=== PATIENT | female | born 1970 | race Caucasian/White ===

== ENCOUNTER 2020-09-21 08:11 | Outpatient (REF) | payer BC, SELFPAY ==
[2020-09-21 09:31] LABS: MANUAL DIFF FLAG NO
[2020-09-21 09:39] LABS: Basophils Absolute Auto 0.1 X10*3/uL (0.0-0.2); Basophils Percent Auto 0.6 % (0-2); Eosinophils Absolute Auto 0.2 X10*3/uL (0.0-0.4); Eosinophils Percent Auto 2.7 % (0-4); Hematocrit 46.2 % (37-47); Hemoglobin 15.2 g/dl (12.0-16.0); Imm Gran Abs Auto 0.06 X10*3/uL (0.00-0.03); Imm Gran Pct Auto 0.7 % (0.0-0.4); Lymphocytes Percent Auto 34.7 % (20-40); Mean Corpuscular HGB Conc 32.9 g/dl (31.0-35.0); Mean Corpuscular Hemoglobin 30.4 pg (27.0-33.0); Mean Corpuscular Volume 92.4 fL (80-98); Mean Platelet Volume 11.3 fL (9.4-12.3); Monocytes Absolute Auto 0.6 X10*3/uL (0.1-1.2); Monocytes Percent Auto 7.4 % (2-11); Neutrophils Absolute Auto 4.6 X10*3/uL (2.0-8.3); Neutrophils Percent Auto 53.9 % (45-73); Platelet Count 217 X10*3/uL (160-400); Red Cell Distribution Width 12.8 % (11.0-16.0); White Blood Count 8.6 X10*3/uL (4.8-10.8)
[2020-09-21 10:02] LABS: Alanine Aminotransferase 33 U/L (0-31); Albumin Level 4.2 g/dL (3.5-5.0); Alkaline Phosphatase 92 U/L (39-117); Anion Gap 12 (12-20); Aspartate Amino Transferase 23 U/L (5-31); Bilirubin Total 1.9 mg/dL (0.0-1.0); Blood Urea Nitrogen 14 mg/dL (9-16); Calcium 9.4 mg/dL (8.4-10.2); Carbon Dioxide 26 mmol/L (22-29); Chloride 109 mmol/L (96-108); Cholesterol 224 mg/dL; Estimated Glomerular Filt Rate > 60; Glucose Fasting 93 mg/dL (60-99); HDL Cholesterol 56 mg/dL; LDL Cholesterol Calculated 125 mg/dl; Potassium 4.4 mmol/L (3.3-5.1); Sodium 143 mmol/L (135-145); Total Protein 7.2 g/dL (6.5-8.0); Triglycerides 215 mg/dL
[2020-09-21 10:16] LABS: Thyroid Stimulating Hormone 0.11 uIU/mL (0.32-4.0); Vitamin D 25-OH Total 14.5 ng/mL (>30)
== END 2020-09-21 08:12 | disposition home or self-care (01) ==
LOC: HO.LAB 08:11
PROVIDERS: PCP Internal Medicine; Visit Provider Internal Medicine
DX: E03.9 Hypothyroidism, unspecified (principal); E55.9 Vitamin D deficiency, unspecified; C50.911 Malignant neoplasm of unspecified site of right female breast; G47.9 Sleep disorder, unspecified; M72.2 Plantar fascial fibromatosis; E66.09 Other obesity due to excess calories; Z68.39 Body mass index [BMI] 39.0-39.9, adult
CPT/HCPCS: 36415; 80053; 80061; 82306; 84443; 85025

== ENCOUNTER 2020-12-03 07:51 | Day surgery (SDC) | payer BC, SELFPAY ==
[2020-11-27 11:21] VITALS: BMI 38.6
--- NOTE | 2020-11-30 11:00 | P.CONAN_ITS ---
Documented by User: Janel Helton 11/30/20 11:01 HPI - Anesthesia Eval Consult details Narrative: 50yo F for Colonoscopy PMFSH Past Medical History Medical History COVID-19 vaccine administered History of anesthesia complications Hx of breast cancer Thyroid disease Surgical History Surgical History H/O colonoscopy History of left oophorectomy History of right oophorectomy History of tonsillectomy and adenoidectomy Hx of bilateral mastectomy Hx of section Hx of cholecystectomy Hx of hysterectomy Social History Social History Patient Tobacco Use Status: Former Tobacco user Quit Date: 2000 Tobacco use type: Cigarette Use of substances other than those prescribed or required for medical reasons: No Have you been hit, kicked, punched, or otherwise hurt by someone within the past year? If so, by whom?: No Are you DNR?: No Advance Directives: No Advance Directives Information Provided: No Advance Directives on File: No Advance Directives Date on File: 12/03/20 Recently lost weight without trying: No Eating poorly because of decreased appetite: No Nutrition Risks: No Nutritional Risk Patient : No Poor oral hygiene: No Meds Allergies Allergy/AdvReac Type Severity Reaction Status Date / Time Sulfa (Sulfonamide Allergy Intermediate Rash Verified 11/27/20 11:28 Antibiotics) Home Medications Medication Instructions Recorded Confirmed Last Taken Type levothyroxine [Synthroid] 1 tab PO DAILY 11/27/20 11/27/20 12/03/20 07:00 History zolpidem 1 tab PO BEDTIME PRN 11/27/20 11/27/20 Unknown History Exam Exam Date and Time: November 30, 2020 1100 Height,Weight and Vital Signs: Height 5 ft 4 in Weight 102.058 kg Pertinent Lab Results Pertinent Lab Results: Laboratory Tests 09/21/20 09/21/20 08:30 08:30 WBC 8.6 Hgb 15.2 Hct 46.2 Plt Count 217 Sodium 143 Potassium 4.4 Chloride 109 H Carbon Dioxide 26 BUN 14 Creatinine 0.79 Assessment and Plan Assessment Anesthesia Assessment: Chart Reviewed Documented by User: Jacobo Fernandez 12/03/20 08:59 [facility] Past Medical History Medical History COVID-19 vaccine administered History of anesthesia complications Hx of breast cancer Thyroid disease Surgical History Surgical History H/O colonoscopy History of left oophorectomy History of right oophorectomy History of tonsillectomy and adenoidectomy Hx of bilateral mastectomy Hx of section Hx of cholecystectomy Hx of hysterectomy Social History Social History Patient Tobacco Use Status: Former Tobacco user Quit Date: 2000 Tobacco use type: Cigarette Use of substances other than those prescribed or required for medical reasons: No Have you been hit, kicked, punched, or otherwise hurt by someone within the past year? If so, by whom?: No Are you DNR?: No Advance Directives: No Advance Directives Information Provided: No Advance Directives on File: No Advance Directives Date on File: 12/03/20 Recently lost weight without trying: No Eating poorly because of decreased appetite: No Nutrition Risks: No Nutritional Risk Patient : No Poor oral hygiene: No Meds Allergies Allergy/AdvReac Type Severity Reaction Status Date / Time Sulfa (Sulfonamide Allergy Intermediate Rash Verified 11/27/20 11:28 Antibiotics) Home Medications Medication Instructions Recorded Confirmed Last Taken Type levothyroxine [Synthroid] 1 tab PO DAILY 11/27/20 11/27/20 12/03/20 07:00 History zolpidem 1 tab PO BEDTIME PRN 11/27/20 11/27/20 Unknown History Exam Airway Mallampati Class: II TM Dist: >3cm Neck ROM: Full Loose/Missing/Broken Teeth: No Heart: rrr+s1s2 Lungs: cta b/l Assessment and Plan Assessment Anesthesia Assessment: Anesthesia Plan Discussed, PAT Visit and Chart Reviewed Final Anesthetic Review NPO: Yes ASA Class: II Final Preanesthetic Review: No Changes in Pt Med Stat, Meds/Allgs Chart Reviewe d, Consent Obtained/Reviewed and Anes Risks/Benef Reviewed Patient Risk: Low Procedure Risk: Low Assessment/Block/Sedation in SS: Assess/Block/Sedation-SS Anesthetic Plan Anesthetic Plan: MAC: and Agree w/ Assess. and Plan Disposition: Standard PACU
[2020-12-03 08:02] VITALS: BP 151/99; PULSE 90; RESP 16; TEMP 36.4; O2SAT 95
[2020-12-03] MEDS: Lactated Ringers 1,000 ML 100 ML IVCONT (08:14)
[2020-12-03 10:30] VITALS: BP 133/74; PULSE 98; RESP 14; TEMP 36.5; O2SAT 98
--- NOTE | 2020-12-03 10:32 | PM.OP ---
Brief Operative Note Date of Service: 12/03/20 Pre-op diagnosis: Screening, IBS Post-op diagnosis: other ([place] polyp, R/O Microscopic colitis) Procedure: Colonoscopy to the cecum and TI with bx, and bx/removal of polyp Surgeon: Magdi Montiel Anesthesia: MAC Was an Epidemiology Investigator used for this Procedure?: No Estimated blood loss (mL): 4.0 Pathology: other (A. Terminal ileum B. Ascending colon C. Transverse colon polyp D. Descending colon) Condition: stable Disposition: PACU
[2020-12-03 10:48] VITALS: BP 132/84; PULSE 94; RESP 16; TEMP 36.8; O2SAT 100
--- NOTE | 2020-12-03 11:19 | OP_ITS ---
SURGEON: Magdi Montiel MD INDICATIONS: The patient presents for evaluation of colorectal cancer screening, as well as irregular bowel movements. Full consent has been obtained from her for this, including risks of bleeding and perforation. PREOPERATIVE DIAGNOSIS: POSTOPERATIVE DIAGNOSIS: PROCEDURE PERFORMED: Colonoscopy to cecum and terminal ileum with biopsies, and biopsy and removal of polyp. ESTIMATED BLOOD LOSS: COMPLICATIONS: ANESTHESIA: Monitored anesthesia care. ASSISTANTS: SPECIMENS: PREOPERATIVE DIAGNOSES: Colorectal cancer screening and irritable bowel syndrome. POSTOPERATIVE DIAGNOSES: Colorectal cancer screening and irritable bowel syndrome, colon polyp, rule out microscopic colitis, internal hemorrhoids. DESCRIPTION OF PROCEDURE: The patient was placed in the left lateral decubitus position. The digital rectal exam revealed no abnormalities. The Olympus video pediatric colonoscope was entered into the rectum and advanced easily to the cecum. Once in the cecum, I did identify normal-appearing cecal pouch with appendiceal orifice and a normal-appearing ileocecal valve. The terminal ileum was cannulated and appeared normal. Biopsies were obtained from the ileum. There was no sign of any Crohn disease. The scope was withdrawn back in the colon. The entire cecum and ileocecal valve appeared normal. The scope was slowly withdrawn assessing all mucosal surfaces carefully. Preparation was excellent. In the transverse colon, was a flat approximately 4 mm polyp, which was biopsied and completely removed with cold biopsy forceps. I did not visualize any sign of other polyps, colitis, nor angiodysplasia. Random biopsies were obtained in the ascending and descending colon. In the rectum, scope was retroflexed visualizing small internal hemorrhoids, but no other pathology. The rectal mucosa appeared normal. The scope was straightened out and withdrawn from the patient. She tolerated the procedure well and was returned to the recovery area in stable condition. IMPRESSION: 1. Small colon polyp, status post biopsy and removal. 2. Rule out microscopic colitis. 3. Internal hemorrhoids. PLAN: The results of the biopsies will be checked. If the polyp is a tubular adenoma, I would recommend a followup colonoscopy in 5 years. If it is only hyperplastic, I would recommend a followup colonoscopy in 10 years. She does report that her irritable bowel syndrome has been at its baseline. She was also to have had laboratories for celiac disease, but she opted to not do that. She will see me on a p.r.n. basis. MD CARLOS Patino/VADIM / [phone] BERNARDO
== END 2020-12-03 11:25 | disposition home or self-care (01) ==
PROVIDERS: PCP Internal Medicine; Visit Provider Internal Medicine
PROC: 0DJD8ZZ Inspection of Lower Intestinal Tract, Via Natural or Artificial Opening Endoscopic (ICD-10-PCS; CPT 45378; principal; 2020-12-03 09:10)
DX: Z12.11 Encounter for screening for malignant neoplasm of colon (principal); D12.3 Benign neoplasm of transverse colon; K58.2 Mixed irritable bowel syndrome; K64.8 Other hemorrhoids; E03.9 Hypothyroidism, unspecified; Z85.3 Personal history of malignant neoplasm of breast; Z79.899 Other long term (current) drug therapy; Z88.2 Allergy status to sulfonamides; Z90.49 Acquired absence of other specified parts of digestive tract; F17.210 Nicotine dependence, cigarettes, uncomplicated
CPT/HCPCS: 45380; 88305

== ENCOUNTER 2022-12-29 06:56 | Outpatient (REF) | payer BC, SELFPAY ==
[2022-12-29 07:21] LABS: MANUAL DIFF FLAG NO
[2022-12-29 07:51] LABS: Basophils Absolute Auto 0.1 X10*3/uL (0.0-0.2); Basophils Percent Auto 0.9 % (0-2); Eosinophils Absolute Auto 0.3 X10*3/uL (0.0-0.4); Eosinophils Percent Auto 3.8 % (0-4); Hemoglobin 14.9 g/dl (12.0-16.0); Imm Gran Abs Auto 0.06 X10*3/uL (0.00-0.03); Imm Gran Pct Auto 0.7 % (0.0-0.4); Lymphocytes Absolute Auto 3.2 X10*3/uL (1.2-4.9); Lymphocytes Percent Auto 36.4 % (20-40); Mean Corpuscular HGB Conc 33.1 g/dl (31.0-35.0); Mean Corpuscular Volume 93.6 fL (80.0-98.0); Mean Platelet Volume 10.9 fL (9.4-12.3); Monocytes Absolute Auto 0.7 X10*3/uL (0.1-1.2); Monocytes Percent Auto 7.7 % (2-11); Neutrophils Absolute Auto 4.4 x10*3/uL (2.0-8.3); Neutrophils Percent Auto 50.5 % (45-73); Platelet Count 216 X10*3/uL (160-400); Red Blood Count 4.81 X10*6/uL (4.20-5.50); Red Cell Distribution Width 13.3 % (11.0-16.0); White Blood Count 8.7 X10*3/uL (4.8-10.8)
[2022-12-29 08:58] LABS: Erythrocyte Sedimentation Rate 16 MM/HR (0-20)
[2022-12-29 10:26] LABS: Alanine Aminotransferase 28 U/L (0-31); Albumin Level 4.1 g/dL (3.5-5.0); Alkaline Phosphatase 91 U/L (39-117); Anion Gap 13 (12-20); Aspartate Amino Transferase 20 U/L (5-31); Bilirubin Total 1.3 mg/dL (0.0-1.0); Blood Urea Nitrogen 18 mg/dL (9-16); Carbon Dioxide 25 mmol/L (22-29); Chloride 107 mmol/L (96-108); Estimated Glomerular Filt Rate > 60; Glucose Fasting 100 mg/dL (60-99); Potassium 4.2 mmol/L (3.3-5.1); Sodium 141 mmol/L (135-145); Thyroid Stimulating Hormone 0.44 uIU/mL (0.32-4.0); Total Protein 7.8 g/dL (6.5-8.0); Vitamin D 25-OH Total 23.9 ng/mL (>30)
== END 2022-12-29 06:57 | disposition home or self-care (01) ==
LOC: HO.LAB 06:56
PROVIDERS: PCP Internal Medicine; Visit Provider Internal Medicine
DX: E03.9 Hypothyroidism, unspecified (principal); E55.9 Vitamin D deficiency, unspecified; Z86.16 Personal history of COVID-19
CPT/HCPCS: 36415; 80053; 82306; 84443; 85025; 85652; 86140

== ENCOUNTER 2023-09-07 07:07 | Outpatient (REF) | payer BC, SELFPAY ==
[2023-09-07 08:32] LABS: Alanine Aminotransferase 35 U/L (0-31); Albumin Level 4.1 g/dL (3.5-5.0); Alkaline Phosphatase 100 U/L (39-117); Anion Gap 11 (12-20); Aspartate Amino Transferase 18 U/L (5-31); Bilirubin Total 1.1 mg/dL (0.0-1.0); Blood Urea Nitrogen 15 mg/dL (9-16); Calcium 9.6 mg/dL (8.4-10.2); Carbon Dioxide 27 mmol/L (22-29); Chloride 108 mmol/L (96-108); Cholesterol 208 mg/dL (<200); Estimated Glomerular Filt Rate > 60; Glucose Fasting 100 mg/dL (60-99); HDL Cholesterol 51 mg/dL (>40); LDL Cholesterol Calculated 110 mg/dL (<100); Potassium 4.2 mmol/L (3.3-5.1); Sodium 142 mmol/L (135-145); Total Protein 7.5 g/dL (6.5-8.0); Triglycerides 239 mg/dL (<150)
== END 2023-09-07 07:08 | disposition home or self-care (01) ==
LOC: HO.LAB 07:07
PROVIDERS: PCP Internal Medicine; Visit Provider Internal Medicine
DX: E03.9 Hypothyroidism, unspecified (principal); I10 Essential (primary) hypertension
CPT/HCPCS: 36415; 80053; 80061

== ENCOUNTER 2024-04-04 07:14 | Outpatient (REF) | payer BC, SELFPAY ==
[2024-04-04 07:30] LABS: MANUAL DIFF FLAG NO
[2024-04-04 07:43] LABS: Basophils Absolute Auto 0.1 X10*3/uL (0.0-0.2); Basophils Percent Auto 0.7 % (0-2); Eosinophils Absolute Auto 0.3 X10*3/uL (0.0-0.4); Eosinophils Percent Auto 3.5 % (0-4); Hematocrit 43.3 % (37.0-47.0); Hemoglobin 14.6 g/dl (12.0-16.0); Imm Gran Abs Auto 0.05 X10*3/uL (0.00-0.03); Imm Gran Pct Auto 0.6 % (0.0-0.4); Lymphocytes Percent Auto 34.5 % (20-40); Mean Corpuscular HGB Conc 33.7 g/dl (31.0-35.0); Mean Corpuscular Hemoglobin 30.9 pg (27.0-33.0); Mean Corpuscular Volume 91.7 fL (80.0-98.0); Mean Platelet Volume 10.4 fL (9.4-12.3); Monocytes Absolute Auto 0.7 X10*3/uL (0.1-1.2); Monocytes Percent Auto 7.6 % (2-11); Neutrophils Absolute Auto 4.6 x10*3/uL (2.0-8.3); Neutrophils Percent Auto 53.1 % (45-73); Platelet Count 226 X10*3/uL (160-400); Red Blood Count 4.72 X10*6/uL (4.20-5.50); Red Cell Distribution Width 12.9 % (11.0-16.0); White Blood Count 8.7 X10*3/uL (4.8-10.8)
[2024-04-04 08:13] LABS: Alanine Aminotransferase 34 U/L (0-31); Albumin Level 3.9 g/dL (3.5-5.0); Alkaline Phosphatase 87 U/L (39-117); Anion Gap 12 (12-20); Aspartate Amino Transferase 30 U/L (5-31); Bilirubin Total 1.2 mg/dL (0.0-1.0); Blood Urea Nitrogen 15 mg/dL (9-16); Calcium 9.4 mg/dL (8.4-10.2); Carbon Dioxide 24 mmol/L (22-29); Chloride 110 mmol/L (96-108); Cholesterol 213 mg/dL (<200); Estimated Glomerular Filt Rate > 60; Glucose Fasting 107 mg/dL (60-99); HDL Cholesterol 52 mg/dL (>40); LDL Cholesterol Calculated 128 mg/dL (<100); Potassium 4.3 mmol/L (3.3-5.1); Sodium 142 mmol/L (135-145); Total Protein 7.4 g/dL (6.5-8.0); Triglycerides 168 mg/dL (<150)
[2024-04-04 08:35] LABS: Thyroid Stimulating Hormone 1.48 uIU/mL (0.32-4.0); Vitamin D 25-OH Total 13.7 ng/mL (>30)
== END 2024-04-04 07:15 | disposition home or self-care (01) ==
LOC: HO.LAB 07:14
PROVIDERS: PCP Internal Medicine; Visit Provider Internal Medicine
DX: E66.09 Other obesity due to excess calories (principal); I10 Essential (primary) hypertension; E03.9 Hypothyroidism, unspecified
CPT/HCPCS: 36415; 80053; 80061; 82306; 84443; 85025

== ENCOUNTER 2024-08-03 15:35 | Outpatient (AMB) | payer BC, SELFPAY ==
--- NOTE | 2024-08-03 15:35 | A.OFFPC_ITS ---
Vital Signs 08/03/24 15:43 Height 5 ft 4.75 in Weight 231 lb BMI 38.7 BP 140/82 H Blood Pressure Location Lt brachial Pulse 85 Pulse Source Pulse Oximeter Temp 97.9 F Pulse Oximetry (%) 99 Intake Visit Reasons: 3 month follow up Intake Note: no issues except the cancer issues Allergies Sulfa (Sulfonamide Antibiotics) Allergy (Intermediate, Verified 08/03/24 16:14) Rash Medication List - Last Reconciled 08/03/24 by Gaby Cloud PA-C cholecalciferol (vitamin D3) 50 mcg PO DAILY exemestane 25 mg PO DAILY ibuprofen 800 mg PO TID levothyroxine (Synthroid) 175 mcg PO DAILY losartan 50 mg PO DAILY PFSH Medical History Class 2 obesity without serious comorbidity with body mass index (BMI) of 38.0 to 38.9 in adult Tubular adenoma Vertigo Uterine prolapse Ovarian cyst Mild hypercholesterolemia Hypertension History of anesthesia complications Hx of breast cancer COVID-19 vaccine administered Thyroid disease Surgical History History of tonsillectomy and adenoidectomy Hx of section Hx of cholecystectomy H/O colonoscopy (~12/03/20) Hx of hysterectomy History of right oophorectomy History of left oophorectomy Hx of bilateral mastectomy Social History Patient Tobacco Use Status: Former Tobacco user Tobacco use type: Cigarette Advance Directives Date on File: 12/03/20 Physical exam (Primary Care) Vital Signs: Last Vital Signs Temp 97.9 F 08/03/24 15:43 Pulse 85 08/03/24 15:43 BP 140/82 H 08/03/24 15:43 Pulse Ox 99 08/03/24 15:43 Care Plan Goal for BP management: <130/80 monitor her blood pressure and return with a diary at her next visit. Patient to continue losartan 50 mg daily. Condition is chronic and stable continue to monitor. BMI result Body Mass Index 38.7 BMI Assessment/Plan discussion: High BMI High, discussed plan: lifestyle, weight reduction, dietary, physical activity and alcohol moderation Tobacco/Smoking Status: Tobacco use Status Patient Tobacco Use Status Former Tobacco user 08/03/24 15:37 Tobacco use type Cigarette 08/03/24 15:37 Coding Level of Care Code New Pt Level 4 (52484) Complex EM visit Add On G2211 Diagnoses Hx of breast cancer Z85.3 Vertigo R42 Uterine prolapse N81.4 Hypertension I10 Thyroid disease E07.9 Mild hypercholesterolemia E78.00 Tubular adenoma D36.9 Class 2 obesity without serious comorbidity with body mass index (BMI) of 38.0 to 38.9 in adult E66.812; Z68.38 Assessment & Plan Assessment & Plan (1) Hx of breast cancer: Comment: Being followed by [facility]. New Lump found R breast. S/P lumpectomy in May 2024. Radiation starts August 2024. Code(s): Z85.3 - Personal history of malignant neoplasm of breast Category: Medical Plan: Patient currently being followed by [facility]. She had a new lump found on her right breast after a mammogram and had a lumpectomy 06/06/2024. Currently on exemestane 25 mg daily. Is expected to start radiation 09/04/2024. Condition is chronic and stable continue to monitor. (2) Vertigo: Code(s): R42 - Dizziness and giddiness Category: Medical Plan: Patient has not had an episode of vertigo in quite some time and is not on any medication. Condition is chronic and stable continue to monitor. (3) Uterine prolapse: Code(s): N81.4 - Uterovaginal prolapse, unspecified Category: Medical Plan: Patient denies any urinary symptoms or difficulties. Condition is chronic and stable continue to monitor. (4) Hypertension: Code(s): I10 - Essential (primary) hypertension Category: Medical Plan: BP Goal <130/80. Patient will monitor her blood pressure and bring in a diary at her next visit. Will continue losartan 50 mg daily. Condition is chronic and stable continue to monitor. (5) Thyroid disease: Comment: hypothyroid Code(s): E07.9 - Disorder of thyroid, unspecified Category: Medical Plan: Patient currently on levothyroxine 175 mcg daily. Condition is chronic and stable continue to monitor. (6) Mild hypercholesterolemia: Code(s): E78.00 - Pure hypercholesterolemia, unspecified Category: Medical Plan: Triglyceride Goal <150. TC Goal <200. LDL Goal <100. HDL Goal >40. Patient had labs in March of 2024 revealed triglyceride levels of 168, total cholesterol 213, LDL 128. Patient not currently on any statin. Patient will improve her diet and exercise regimen at this time. Will reassess at next visit/blood draw although patient may need to be started on a statin at that time. Condition is chronic and stable continue to monitor (7) Tubular adenoma: Comment: Found on colonoscopy 12/03/2020 repeat in 2025 Code(s): D36.9 - Benign neoplasm, unspecified site Category: Medical Plan: Patient to have repeat colonoscopy in 2025. Condition is chronic and stable continue to monitor. (8) Class 2 obesity without serious comorbidity with body mass index (BMI) of 38.0 to 38.9 in adult: Code(s): E66.812 - Obesity, class 2; Z68.38 - Body mass index [BMI] 38.0-38.9, adult Category: Medical Plan: Patient to improve her diet and exercise regimen. Condition is chronic and stable continue to monitor. Plan Plan Patient was informed and verbally consented to the use of an ambient scribe for clinic note documentation during this visit. 1. Hyperlipidemia Management via dietary adjustments and lipid monitoring emphasized. Addressed possible requirements for future medicinal intervention. 2. Hypertension Blood pressure to be monitored at home, with potential adjustments to losartan pending further readings and assessments. 4. Hypothyroidism Maintained current levothyroxine regimen, with thyroid function tests to be monitored to ensure therapeutic efficacy. 7. Colon Polyps, History Previous tubular adenoma necessitates a follow-up colonoscopy in 2025. Importance of regular screening due to adenoma discussed. Discussion Notes I discussed with the patient the current status and management plan for her recent diagnosis of a new breast lump, resulting in a lumpectomy, and pending radiation therapy. We reviewed the side effect profile of her exemestane therapy and the expectations during her ongoing cancer treatment. I emphasized the need for continued vigilance against hypertension, recommending home monitoring, with the potential for antihypertensive medication adjustments as needed. Our co nversation also covered her history of colonic polyps and the necessity of adhering to her surveillance colonoscopy schedule given the previous findings. I reiterated the management approach for her hyperlipidemia with continued monitoring through lipid profiles and dietary measures. Vitamin D supplementation was affirmed given her deficiency. The patient voiced understanding of her chronic condition management, with ample support systems in place for continued care. Follow-up is planned to assess the impact of therapy and adjust interventions accordingly. Orders: Orders Complete Blood Count Auto Diff Today Z00.00 - Encounter for general adult medical examination without abnormal findings Comprehensive [place]. Panel Fast Today Z00.00 - Encounter for general adult medical examination without abnormal findings C Reactive Protein Today Z00.00 - Encounter for general adult medical examination without abnormal findings Liver Panel Today Z00.00 - Encounter for general adult medical examination without abnormal findings Hemoglobin A1c Today Z00.00 - Encounter for general adult medical examination without abnormal findings Vitamin B12 and Folate Today Z00.00 - Encounter for general adult medical examination without abnormal findings Vitamin B1 Today Z00.00 - Encounter for general adult medical examination without abnormal findings Magnesium Today Z00.00 - Encounter for general adult medical examination without abnormal findings Zinc Today Z00.00 - Encounter for general adult medical examination without abnormal findings Erythrocyte Sedimentation Rate Today Z00.00 - Encounter for general adult medical examination without abnormal findings Lipid Panel Today Z00.00 - Encounter for general adult medical examination without abnormal findings Parathyroid Hormone Intact Today Z00.00 - Encounter for general adult medical examination without abnormal findings Vitamin D 25-OH Total Today Z00.00 - Encounter for general adult medical examination without abnormal findings TSH reflex Free T4 Today Z00.00 - Encounter for general adult medical examination without abnormal findings Phosphorus Today Z00.00 - Encounter for general adult medical examination without abnormal findings Patient Instructions: Patient Instructions - Monitor blood pressure regularly at home and record the readings. - Schedule and complete fasting blood work, ensuring no food intake after midnight prior to testing. - Continue current medications as prescribed, including vitamin D supplementation. - Maintain a healthy diet with attention to lipid levels, and consult if significant symptoms arise. - Be aware of therapy side effects, reporting significant issues or new symptoms. - Plan and prepare for scheduled radiation therapy and approach support systems with any concerns. - Follow up in three months for ongoing management evaluation and symptom review. - Adhere to surveillance colonoscopy schedule according to past findings. Scribe Plan - Not visible on output: History of Present Illness The patient is a 54-year-old female presenting for a routine follow-up and evaluation of recent medical interventions. She has a significant past medical history of breast cancer with a bilateral mastectomy and reconstruction 11 years prior, and a recent lumpectomy on the right breast in May 2024 due to the discovery of a new lump. She is currently being followed by [facility]. She is scheduled for radiation 09/04/2024. She is currently on chemotherapy. Her medical background includes hypothyroidism, for which she is taking levothyroxine, hypertension managed with losartan, and hyperlipidemia. She also has a history of episodic migraines, vertigo which has not been recently problematic, irritable bowel syndrome, and colonic polyps. She underwent an array of surgeries including hysterectomy and appendectomy. The patient is currently using exemestane as chemotherapy, noting symptom recurrence such as hot flashes and brain fog observed previously when she was on this medication. A prior colonoscopy in 2020 revealed tubular adenoma, scheduling her next colonoscopy for 2025. 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 - Living situation not specifically discussed - with family support - No reports or discussion regarding substance use - Maintains independence with activities of daily living Review of Systems - Neurological: Reports hot flashes and brain fog with current chemotherapy regimen - Cardiovascular: Denies chest pain, denies shortness of breath - Gastrointestinal: Denies black or bloody stools - Genitourinary: Denies burning with micturition - Dermatological: Denies any rashes - Musculoskeletal: Reports occasional leg swelling without accompanying shortness of breath Physical Exam Appearance: Alert. Oriented X3. No acute distress. Head: Normal external exam. Normocephalic. Atraumatic. Eyes: Pupils are equal, round, and reactive to light. Extraocular movements intact. Conjunctiva and sclera normal. Eyelids normal. Ears: External auditory canal normal. Tympanic membranes normal. Throat: Pharynx normal. Uvula midline. Moist mucous membranes. Neck: Normal inspection. Neck supple. Full range of motion. No adenopathy. T hyroid Normal. No meningeal signs. No neck mass noted. Cardiovascular: Normal heart rate and rhythm. Heart sound normal. No murmurs noted. Pulses normal throughout. Respiratory: No respiratory distress. Painless inspiration. Breath sounds normal. No wheezes/rales/rhonchi noted. Chest nontender. No accessory muscle usage noted or decreased air movement noted. Abdomen: Soft and nontender. Bowel sounds normal in all 4 quadrants. No distention noted. No organomegaly noted. No visible injury noted. Back: No costovertebral angle tenderness. Full range of motion noted. Skin: Skin warm and dry. Normal skin color. Normal skin turgor. No rashes/lesions/lacerations noted. Extremities: No lower extremity edema. Extremities exhibit normal range of motion. Extremities nontender. Neuro: Oriented X 3. No motor deficit. No sensory deficit. Reflexes normal. Results - Labs: Past results indicated elevated triglycerides and vitamin D deficiency - Procedures: Tubular adenoma identified on a previous colonoscopy in 2020
[2024-08-03 15:43] VITALS: BP 140/82; PULSE 85; TEMP 36.6; O2SAT 99; BMI 38.7
--- OUTSIDE RECORDS SUMMARY | 2024-08-03 17:33 | XMS_ITS | Patient Health Record ---
Author Organization [facility] Address [address] [place] [address] Care Team Providers Care Hydraulic Specialist Name Role Phone Violette (RETIRED) Magdi WHEATLEY Primary Care Provid er Unavailable Magdi Montiel Unavailable [phone] Allergies Allergen (clinical drug ingredient) Drug/Non Drug Allergy documented on EMR Reaction Allergy Type Onset Date Status Substance with sulfonamide structure and antibacterial mechanism of action (substance) Suflas (uncoded) rash Allergy Active Reason For Referral No Information Medications Medication SIG (Take, Route, Frequency, Duration) Notes Start Date End Date Status Ibuprofen PRN Active Levothyroxine Sodium 75 MCG Orally Active Immunizations Vaccine Route Administration Date Status Comme nts Influenza Unknown 02/29/2020 Administered Social History Tobacco Use: Social History Observation Description Date Details (start date - stop date) Never Smoker NA - NA Tobacco Use/Smoking Question Answer Notes Patient is a nonsmoker Alcohol Screen Question Answer Notes Did you have a drink contain ing alcohol in the past year? Yes How often did you have a dri nk containing alcohol in the past year? 2 to 4 times a month (2 points) How many drinks did you have on a typical day when you were drinking in the past year? 1 or 2 drinks (0 point) How often did you have 6 or more drinks on one occasion in the past year? Never (0 point) Points 2 Interpretation Negative Section Notes: Nonsmoker; no sig alcohol Problems Problem Type SNOMED Code ICD Code Onset Dates Problem Status W/U Status Risk Notes Problem Irritable bowel syndrome (41555004) Irritable bowel syndrome (K58.9) Active confirmed Problem [id number] Encounter for screening for malignant neoplasm of colon (Z12.11) Active confirmed Problem [id number] Preprocedural examination (Z01.818) Active confirmed Problem 36328160 Irritable bowel syndrome with both constipation and diarrhea (K58.2) Active confirmed Plan Of Treatment Pending Test Test Name Order Date CELIAC PANEL #10 10/30/2020 Future Test Test Name Order Date COLONOSCOPY 10/30/2020 Insurance Providers Payer Name Payer Address Payer Phone Subscriber Number Group Number Insured Name Patient Relationship to Insured Coverage Start Date Coverage End Date [facility] [place] [employer] [address] [place] [address] [id number] GRANT JURADO Self - patient is the insured Medical (General) History Medical History History ICD Code Breast cancer--2013-right side-surgeries as below with 2 years of Tamoxifen Hypothyroidism Headaches/Neck pain/Dizzy spells Denies HI,DM,CVA,Lung disease,renal dise ase IBS--intermittent diarrhea/c onstipation--reports 2 negative colonoscopies in her 20's or 30's Surgical History Surgery Date(Month/Year) Tonsillectomy and adenoidectomy Cholecystectomy Ovarian surgery-left Hysterectomy-w/right ovary Bilateral mastectomy with ri ght-sided lymph node removal and reconstruction surgery at the same time Appendectomy
--- OUTSIDE RECORDS SUMMARY | 2024-08-03 17:33 | XMS_ITS | Continuity of Care Document ---
Author Organization [facility] Address [address] [place] [address]- Care Team Providers Care Coater Operator Insulation Board Name Role Phone Magdi Oakes DO Primary Care Physician Encounter [facility] Date(s): 06/22/24 - 07/22/24 [facility] [address] [place] [address]- Attending Physician: Abelino Quiñones Admitting Physician: AdmtrAbelino Referring Physician: Admtr [id number] Encounter Type: Triage Allergies, Adverse Reactions, Alerts Substance Criticality Severity Reaction Reaction Severity Status sulfa drugs hives Active Medications Levothyroxine = 175 mcg, By Mouth, Daily, 0 Refills, 12/01/07 9:10:13 AM EDT Start Date: 12/01/07 Status: Ordered Repeat number: 1 losartan 25 mg oral tablet 25 mg, 1, tablet, By Mouth, Daily, # 90 tablet, Refills 0, Maintenance, 06/22/24 9:06:00 AM EST, Partial fill upon patient request if the prescription is for a schedule II opioid drug. Start Date: 06/22/24 Status: Ordered Quantity: 90.0 Unit: tablet Repeat number: 1 Vitamin D3 2000 intl units oral capsule 1 capsule = 50 mcg, By Mouth, Daily, # 60 capsule, 0 Refills, Maintenance, 06/22/24 9:07:00 AM EST, Capsule, Partial fill upon patient request if the prescription is for a schedule II opioid drug. Start Date: 06/22/24 Status: Ordered Quantity: 60.0 Unit: capsule Repeat number: 1 Problem List Condition Confirmation Course Effective Dates Status H ealth Status Informant Breast cancer Confirmed Active Obese class II Confirmed Active Well woman exam with routine gynecological exam Confirmed Active Social History Social History Type Response Smoking Status Former smoker entered on: 09/30/16 Sex Sex Representation Female (finding) 1QUIT 1999 Laboratory * Event Display: Non BH Lab Results Authored Date: Radiology * Event Display: Ultrasound Abdomen, Non-BH Authored Date: * Event Display: Non BH Radiology Results Authored Date: * Event Display: Non BH Radiology Results Authored Date: Patient Care team information Care Team Personnel Name: Alessia Page MD Position: [facility] SURFACE HYDROLOGIST MD Member Role: [facility] SURFACE HYDROLOGIST Physician Address: [address] [place], [place] [address] [facility] [place] [address]- Telecom: Name: Magdi Oakes DO Position: Reference Physician Member Role: PCP Address: [address] [place] [address] Magdi Oakes MD [place], [place] [address] Telecom: Care Team Related Persons Name: KENROY JURADO Insurance Providers Guarantor name: GRANT RHIANNON Health Plan Information #: 1 Payer: HMO BLUE [employer] NETWORK Member Number: NA Policy Number: NA Group Number: NA
--- OUTSIDE RECORDS SUMMARY | 2024-08-03 17:33 | XMS_ITS | Patient Health Record ---
Author Organization Darian Aguilar MD Address [address] [place] [phone] Care Team Providers Care Injection Machine Operator Name Role Phone Violette Magdi WHEATLEY Primary Care Provider Unavail able Darian Aguilar Unavailable [phone] Allergies No Known Allergies Reason For Referral No Information Medications Medication SIG (Take, Route, Frequency, Duration) Notes Start Date End Date Status Levothyroxine Sodium 175 MCG 1 tablet in the morning on an empty stomach Orally Once a day Active Losartan Potassium 50 MG 1 tablet Orally Once a day for 30 day(s) Active Amoxicillin-Pot Clavulanate 875-125 MG 1 tablet Orally every 12 hrs for 10 days 12/31/2023 Active Problems Problem Type SNOMED Code ICD Code Onset Dates Problem Status W/U Status Risk Notes Problem 288527229 Chronic sinusitis, unspecified (J32.9) Active confirmed Vital Signs Temperature 101 degrees Fahrenheit 12/31/2023 weigh t is 225 BP not taken at home today T 101 Weight 225 lbs 12/31/2023 weight is 225 B P not taken at home today T 101 Encounters Encounter Location Date Provider Diagnosis Darian Aguilar MD [address] [place] [phone] 04/26/2024 Darian Aguilar MD [address] [place] [address] Drive [address] [place] [id number] 12/31/2023 Darian Aguilar Chronic sinusitis, unspecified J32.9 Assessments Encounter Date Diagnosis (ICD Code) Assessment Notes Treatment Notes Treatment Clinical Notes Section Notes 12/31/2023 Chronic sinusitis, unspecified (ICD-10 - J32.9) patient verbalized understanding of medication and directins for use, advised to check for covid Plan Of Treatment No Information Insurance Providers Payer Name Payer Address Payer Phone Subscriber Number Group Number Insured Name Patient Relationship to Insured Coverage Start Date Coverage End Date [employer] [address] [place], [place] [id number] [phone] [id number] Nicole Bui Self - patient is the insured
--- OUTSIDE RECORDS SUMMARY | 2024-08-03 17:33 | XMS_ITS ---
Author Organization Darian Aguilar MD Address [address] [place], [place] [phone] Care Team Providers Care Dianeticist Name Role Phone Violette WHEATLEY Magdi Primary Care Provider Unavail able Darian Aguilar Unavailable [phone] REASON FOR VISIT wrong name Encounters Encounter Location Date Provider Diagnosis Darian Aguilar MD [address] [place], [place] [phone] 04/26/2024 Darian Aguilra Plan Of Treatment No Information Progress Notes * SCARLETMia CORDOVAenDOB: 0 (54 yo F)Acc No.[id number]:04/26/2024 Patient:?Nicole Bui :1970???Age:54 Y???Sex:Female Address:[address] , [place], [address] * true * Date:? Generated for Abner diaz/Moises/eTransmitting on:?08/03/2024 05:32 PM EDT
--- OUTSIDE RECORDS SUMMARY | 2024-08-03 17:33 | XMS_ITS ---
Author Organization Darian Aguilar MD Address [address] [place] [phone] Care Team Providers Care Sales Promotion Director Name Role Phone Magdi Oakes DO Primary Care Provider Unavail able Darian Aguilar Unavailable [phone] Allergies No Known Allergies REASON FOR VISIT sinuses Did not test for Covid, c/o fever 101 x 1 day, headache , cough, head congestion nauseau, Video [phone] Medications Medication SIG (Take, Route, Frequency, Duration) [...] Problem Status W/U Status Risk Notes Problem [id number] Chronic sinusitis, unspecified (J32.9) Active confirmed Vital Signs Temperature 101 degrees Fahrenheit Weight 225 lbs 12/31/2023 weight is 225 BP not taken a t home today T 101 Encounters Encounter Location Date Provider Diagnosis Darian Aguilar MD [address] [place] [phone] 12/31/2023 Darian Aguilar Chronic sinusitis, unspecified J32.9 Assessments Encounter Date Diagnosis (ICD Code) Assessment Notes Treatment Notes Treatment Clinical Notes Section Notes 12/31/2023 Chronic sinusitis, unspecified (ICD-10 - J32.9) patient verbalized understanding of medication and directins for use, advised to check for covid Plan Of Treatment Medication Medication Name Sig Start Date Stop Date Notes Amoxicillin-Pot Clavulanate 875-125 MG 1 tablet Orally every 12 hrs for 10 days 12/31/2023 Treatment Notes Assessment Notes Chronic sinusitis, unspecified patient v erbalized understanding of medication and directins for use, advised to check for covid Progress Notes * Martina NOVAKDOB:1970 ( 53 yo F)Acc No.[id number]:12/31/2023 Patient:?Martina Novak Provider:?Darian Aguilar MD :1970???Age:53 Y???Sex:Female D ate:12/31/2023 Address:[address] , [place] , [facility] Pcp:Magdi Oakes, DO Subjective: * Chief Complaints: * ???sinuses Did not test for CovidC/o fever 101 x 1 day, headache , cough, head congestion nauseauVideo [phone] * HPI: ???Symptom(s):?Telehealth?Location of provider rendering services:?[address], [address],?Location of patient:?at address listed in demographics for today's visit,?Patient identification confirmed using:?Name, , SSN, Insurance information,?Telehealth method:?Video conference where patient is visible to the provider of care,?Consent:?Patient verbally consented to treatment, Patient verbally consented to billing insurance company, Patient informed of any privacy concerns related to method of visit.? patient is a 53 yo female here with complaint of pain in top of head and is coughing as well as head congestion and fever . has history of sinus infections. * ROS:?General/Constitutional:?Denies?Chills.?Denies?Fatigue.?Admits?Fever.?Admits?Headache.?ENT:?Patient denies?decreased sense of smell , any loss of taste , sore throat.?Denies?Sore throat.?Respiratory:?Denies?Cough.?Denies?Shortness of breath at rest.?Denies?Shortness of breath with exertion.?Gastrointestinal:?Denies?Diarrhea.?Denies?Nausea.?Musculoskeletal:?Patient denies?muscle aches.?Peripheral Vascular:?Patient denies?red and blue toes.? * Medical History:? * Surgical History:? * Hospitalization/Major Diagno stic Procedure:? * Medications:?TakingLosartan Potassium 50 MG Tablet 1 tablet Orally Once a dayLevothyroxine Sodium 175 MCG Tablet 1 tablet in the morning on an empty stomach Orally Once a dayMedication List reviewed and reconciled with the patientTaking Losartan Potassium 50 MG Tablet 1 tablet Orally Once a dayTaking Levothyroxine Sodium 175 MCG Tablet 1 tablet in the morning on an empty stomach Orally Once a dayMedication List reviewed and reconciled with the patient * Allergies:?N.K.D.A.yes[Aller gies Verified] Objective: * Vitals:?Wt:225, Temp:101 weight is 225 BP not taken at home today T 101. * Examination: ???General Examination: ?GENERAL APPEARANCE:? alert, well hydrated, in no distress .? Assessment: * Assessment: 1.?Chronic sinusitis, unspec ified - J32.9 (Primary)? Plan: * Treatment: * Procedure Codes:? * * Sign off status: Completed true * Provider:?Darian Aguilar MD Date:?0 12/31/2023 Generated for Abner diaz/Moises/Ashleeitting on:?08/03/2024 05:33 PM EDT History and Physical Notes * HPI (History of Present Illness) Category Sub-Category Detail Notes Category Not es Symptom(s) Telehealth [facility] [address], [address] patient is a 53 yo female here with complaint of pain in top of head and is coughing as well as head congestion and fever . has history of sinus infections Location of patient:: at address listed in demographics for today's visit Patient identification confirmed using:: Name, , SSN, Insurance information Telehealth method:: Video co nference where patient is visible to the provider of care Consent:: Patient verbally c onsented to treatment, Patient verbally consented to billing insurance company, Patient informed of any privacy concerns related to method of visit Examination Category Sub-Category Detail Notes Category Not es General Examination GENERAL APPEARANCE: alert, w ell hydrated, in no distress
== END 2024-08-03 16:15 | disposition home or self-care (01) ==
LOC: HO.HMCSH 15:35
PROVIDERS: PCP Internal Medicine; Visit Provider Physician Assistant Medical
DX: Z85.3 Personal history of malignant neoplasm of breast (principal); R42 Dizziness and giddiness; N81.4 Uterovaginal prolapse, unspecified; I10 Essential (primary) hypertension; E07.9 Disorder of thyroid, unspecified; E78.00 Pure hypercholesterolemia, unspecified; D36.9 Benign neoplasm, unspecified site; E66.812 Obesity, class 2; Z68.38 Body mass index [BMI] 38.0-38.9, adult

== ENCOUNTER → 2024-08-03 15:35 | Outpatient (BNVA) | payer BC, SELFPAY | PROVIDERS: PCP Internal Medicine; Visit Provider Physician Assistant Medical ==

== ENCOUNTER 2024-11-01 07:32 | Outpatient (REF) | payer BC, SELFPAY ==
[2024-11-01 07:55] LABS: MANUAL DIFF FLAG NO
[2024-11-01 08:07] LABS: Basophils Absolute Auto 0.1 X10*3/uL (0.0-0.2); Basophils Percent Auto 0.9 % (0-2); Eosinophils Absolute Auto 0.2 X10*3/uL (0.0-0.4); Eosinophils Percent Auto 3.2 % (0-4); Hematocrit 44.1 % (37.0-47.0); Hemoglobin 14.6 g/dl (12.0-16.0); Imm Gran Abs Auto 0.03 X10*3/uL (0.00-0.03); Imm Gran Pct Auto 0.6 % (0.0-0.4); Lymphocytes Percent Auto 19.2 % (20-40); Mean Corpuscular HGB Conc 33.1 g/dl (31.0-35.0); Mean Corpuscular Hemoglobin 30.5 pg (27.0-33.0); Mean Corpuscular Volume 92.3 fL (80.0-98.0); Mean Platelet Volume 10.5 fL (9.4-12.3); Monocytes Absolute Auto 0.6 X10*3/uL (0.1-1.2); Monocytes Percent Auto 10.9 % (2-11); Neutrophils Absolute Auto 3.5 x10*3/uL (2.0-8.3); Neutrophils Percent Auto 65.2 % (45-73); Platelet Count 203 X10*3/uL (160-400); Red Blood Count 4.78 X10*6/uL (4.20-5.50); Red Cell Distribution Width 12.5 % (11.0-16.0); White Blood Count 5.3 X10*3/uL (4.8-10.8)
[2024-11-01 08:12] LABS: Estimated Average Glucose 114 mg/dL; Hemoglobin A1c % 5.6 % (<6.0); Total Hemoglobin (HGBA1C) 3812.6398 umol/L
[2024-11-01 08:39] LABS: Parathyroid Hormone Intact 79.7 pg/mL (8.7-77.1)
[2024-11-01 08:43] LABS: Alanine Aminotransferase 36 U/L (0-31); Albumin Level 4.3 g/dL (3.5-5.0); Alkaline Phosphatase 102 U/L (39-117); Anion Gap 14 (12-20); Aspartate Amino Transferase 31 U/L (5-31); Bilirubin Direct 0.3 mg/dL (0.0-0.5); Bilirubin Total 1.2 mg/dL (0.0-1.0); Blood Urea Nitrogen 18 mg/dL (9-16); C Reactive Protein 0.48 mg/dL (< or = 0.50); Carbon Dioxide 26 mmol/L (22-29); Chloride 108 mmol/L (96-108); Cholesterol 219 mg/dL (<200); Estimated Glomerular Filt Rate > 60; Glucose Fasting 100 mg/dL (60-99); HDL Cholesterol 52 mg/dL (>40); LDL Cholesterol Calculated 135 mg/dL (<100); Phosphorus 3.3 mg/dL (2.7-4.5); Potassium 4.6 mmol/L (3.3-5.1); Sodium 143 mmol/L (135-145); Total Protein 7.5 g/dL (6.5-8.0); Triglycerides 161 mg/dL (<150)
[2024-11-01 08:44] LABS: Erythrocyte Sedimentation Rate 17 MM/HR (0-20)
[2024-11-01 09:02] LABS: TSH reflex Free T4 0.11 uIU/mL (0.32-4.0); Vitamin D 25-OH Total 48.3 ng/mL (>30)
[2024-11-01 09:22] LABS: Folate 8.4 ng/mL (> or = 4.0); Vitamin B12 256 pg/mL (200-900)
[2024-11-03 19:23] LABS: Zinc 78 mcg/dL (60-130)
[2024-11-06 13:58] LABS: Vitamin B1 10 nmol/L (8-30)
== END 2024-11-01 07:33 | disposition home or self-care (01) ==
LOC: HO.LAB 07:32
PROVIDERS: PCP Internal Medicine; Visit Provider Physician Assistant Medical
DX: Z00.00 Encounter for general adult medical examination without abnormal findings (principal); Z13.1 Encounter for screening for diabetes mellitus; Z13.0 Encounter for screening for diseases of the blood and blood-forming organs and certain disorders involving the immune mechanism; Z13.29 Encounter for screening for other suspected endocrine disorder; Z13.220 Encounter for screening for lipoid disorders
CPT/HCPCS: 36415; 80053; 80061; 80076; 82248; 82306; 82607; 82746; 83036; 83735; 83970; 84100; 84425; 84439; 84443; 84630; 85025; 85652; 86140

== ENCOUNTER 2024-11-04 14:41 | Outpatient (AMB) | payer BC, SELFPAY ==
[2024-11-04 14:44] VITALS: BP 121/64; PULSE 84; RESP 14; TEMP 37.1; O2SAT 97; BMI 37.6
--- NOTE | 2024-11-04 14:44 | A.OFFPC_ITS ---
Vital Signs 11/04/24 14:44 Height 5 ft 4.75 in Weight 224 lb BMI 37.6 BP 121/64 Respiration 14 Pulse 84 Pulse Source Pulse Oximeter Temp 98.8 F Temp Source Temporal Artery Scan Pulse Oximetry (%) 97 Oxygen Delivery Method Room Air Intake Visit Reasons: 3 month f/u Laboratory Engineer Required: No Accompanied by: Self / Same As Patient Allergies Sulfa (Sulfonamide Antibiotics) Allergy (Intermediate, Verified 11/04/24 15:39) Rash Medication List - Last Reconciled 11/04/24 by Gaby Cloud PA-C cholecalciferol (vitamin D3) 50 mcg PO DAILY exemestane 25 mg PO DAILY ibuprofen 800 mg PO TID levothyroxine (Synthroid) 150 mcg PO DAILY 6 weeks losartan 50 mg PO DAILY Tobacco use date assessed: 11/04/24 Dental Screening Dental Screen Date: 11/04/24 Did you have a dental visit in the last 12 months?: No Did you have a dental problem in the last 6 months where you did not have access to dental care?: No Was dental information given to patient?: Patient has dentist HPI 3 month f/u HPI Details The patient is a 54-year-old female presenting for a follow-up visit to discuss recent laboratory results and ongoing management of her thyroid function and cholesterol levels. The patient has a history of subclinical hypothyroidism, currently managed with levothyroxine 175 mcg daily, taken six days a week. Recent lab results indicate low thyroid levels, prompting a discussion about adjusting her medication dosage. The patient is advised to decrease her levothyroxine dose by 25 mcg and to repeat thyroid function tests in six weeks. The patient also has hypercholesterolemia, with recent lab results showing a total cholesterol level of 219 mg/dL and LDL cholesterol at 135 mg/dL. She is not currently on statin therapy and prefers to manage her cholesterol through dietary modifications. The patient has prediabetes, with fasting glucose levels consistently over 100 mg/dL, and an A1c of 5.6%. She is advised to reduce sugar intake to prevent progression to diabetes. The patient has a history of breast cancer treated with radiation therapy, completed three weeks ago. She reports no significant symptoms post-radiation, but there is a consideration that radiation may affect her thyroid function. [facility] Medical History (Updated 11/04/24 @ 15:46 by Gaby Cloud, PA-C) Status post radiation therapy Prediabetes Hypertriglyceridemia Hyperlipidemia Pure hypercholesterolemia, unspecified Subclinical hypothyroidism Class 2 obesity without serious comorbidity with body mass index (BMI) of 38.0 to 38.9 in adult Tubular adenoma Vertigo Uterine prolapse Ovarian cyst Mild hypercholesterolemia Hypertension History of anesthesia complications Hx of breast cancer COVID-19 vaccine administered Thyroid disease Surgical History History of tonsillectomy and adenoidectomy Hx of section Hx of cholecystectomy H/O colonoscopy (~12/03/20) Hx of hysterectomy History of right oophorectomy History of left oophorectomy Hx of bilateral mastectomy Family History Father Heart disease Prostate cancer Mother Heart disease Scleroderma Lupus (systemic lupus erythematosus) Social History Housing: House Alcohol intake: current Alcohol intake frequency: holidays/special occasions only Patient Tobacco Use Status: Former Tobacco user Tobacco use type: Cigarette Advance Directives Date on File: 12/03/20 service: No Current occupational status: employed Cognitive needs: No Hearing needs: No Vision needs: Yes (rx glasses) Questionnaire PHQ-9 Over the last 2 weeks, how often have you been bothered by any of the following problems? 1. Little interest or pleasure in doing things: not at all 2. Feeling down, depressed, or hopeless: not at all 3. Trouble falling or staying asleep, or sleeping too much: not at all 4. Feeling tired or having little energy: not at all 5. Poor appetite or overeating: not at all 6. Feeling bad about yourself - or that you are a failure or have let yourself or your family down: not at all 7. Trouble concentrating on things, such as reading the newspaper or watching television: not at all 8. Moving or speaking so slowly that other people could have noticed. Or the opposite - being so fidgety or restless that you have been moving around a lot more than usual: not at all 9. Thoughts that you would be better off or of hurting yourself in some way: not at all Total score: 0 Depression Screening Interpretation: Negative Depression Screening Done: Yes 24835 - PHQ-9 Billing: Yes Source: Developed by Drs. Magdi Delcid, Sharon Connors, Jasiel Marshall and colleagues, with an educational gloria from [employer]. Thrive Questionnaire Date Thrive assessed: 11/04/24 I am a: Patient What is your living situation today?: I have a steady place to live Within the past 12 months, did the food you bought not last and you didn't have the money to get more?: Never true Within the past 12 months, did you worry whether your food would run out before you got money to buy more?: Never true Do you have trouble paying for medicines?: No Do you have trouble getting transportation to medical appointments?: No Do you have trouble paying your heating and electricity bill?: No Do you have trouble taking care of your child, family member or friend?: No Do you have trouble with day-to-day activities such as bathing, preparing meals, shopping, managing finances, etc.?: No Are you currently unemployed and looking for a job?: No Are you interested in more education?: No Please select the resources that you would like help with: None THRIVE Score: 0 AUDIT C Alcohol Use Questionnaire (AUDIT-C) 1. How often do you have a drink containing alcohol?: Monthly or less 2. How many drinks containing alcohol do you have on a typical day when you are drinking?: 1 or 2 3. How often do you have six or more drinks on one occasion?: Never Total Score: 1 Score Reviewed/Action Taken: Yes BELINDA-7 AMB Questionnaire BELINDA-7 Date BELINDA - 7 assessed: 11/04/24 Feeling nervous, anxious, or on edge: 0 = Not at all Not being able to stop or control worryin = Not at all Worrying too much about different things: 0 = Not at all Trouble relaxin = Not at all Being so restless that it is hard to sit still: 0 = Not at all Becoming easily annoyed or irritable: 0 = Not at all Feeling afraid as if something awful might happen: 0 = Not at all Total BELINDA-7 score (0-4 normal; 5-9 mild; 10-14 moderate; 15-21 severe): 0 Source: Developed by Drs. Magdi Delcid, SharonJasiel Rodriguez and colleagues, with an educational gloria from [employer]. BELINDA-7 Assessment Billing BELINDA-7 Assessment Tool: BELINDA-7 Assessment 33690 Review of Systems Const Details: - Endocrine: Reports no symptoms of hyperthyroidism such as palpitations or heat intolerance. - General: Denies feeling unwell or experiencing any new symptoms post-radiation therapy. Physical exam (Primary Care) Vital Signs: Last Vital Signs Temp 98.8 F 11/04/24 14:44 Pulse 84 11/04/24 14:44 Resp 14 11/04/24 14:44 BP 121/64 11/04/24 14:44 Pulse Ox 97 11/04/24 14:44 Oxygen Delivery Method Room Air 11/04/24 14:44 Care Plan Goal for BP management: <140/90 at Goal BMI result Body Mass Index 37.6 Tobacco/Smoking Status: Tobacco use Status Tobacco use date assessed 11/04/24 11/04/24 14:54 Patient Tobacco Use Status Former Tobacco user 11/04/24 14:54 Tobacco use type Cigarette 11/04/24 14:54 PHQ-9: PHQ-9 Score PHQ-9: Total score 0 11/04/24 14:54 Depression Screening Interpretation: Negative Thrive Assessment: Date of Thrive Assessment Date Thrive assessed 11/04/24 11/04/24 14:54 Const Other: Appearance: Alert. Oriented X3. No acute distress. Head: Normal external exam. Normocephalic. Atraumatic. Eyes: Pupils are equal, round, and reactive to light. Extraocular movements intact. Conjunctiva and sclera normal. Eyelids normal. Throat: Pharynx normal. Uvula midline. Moist mucous membranes. Neck: Normal inspection. Neck supple. Full range of motion. Cardiovascular: Normal heart rate and rhythm. Respiratory: No respiratory distress. Painless inspiration. Back: Full range of motion noted. Skin: Skin warm and dry. Normal skin color. Normal skin turgor. No rashes/lesions/lacerations noted. Extremities: Extremities exhibit normal range of motion. Results Reviewed Results Reviewed: - Labs: Thyroid function tests indicate low thyroid levels. - Labs: Total cholesterol level is 219 mg/dL, LDL cholesterol is 135 mg/dL. - Labs: Fasting glucose levels consistently over 100 mg/dL, A1c is 5.6%. - Labs: Total bilirubin consistently at 1.2 mg/dL. Coding Level of Care Code Est Pt Level 4 (89401) Complex EM visit Add On G2211 Diagnoses Subclinical hypothyroidism E03.8 Pure hypercholesterolemia, unspecified E78.00 Hyperlipidemia E78.5 Hypertriglyceridemia E78.1 Prediabetes R73.03 Status post radiation therapy Z92.3 Additional Codes PHQ-9 - 53499 - PHQ-9 Billing: Yes ([id number]) BELINDA-7 Assessment Billing - BELINDA-7 Assessment Tool: BELINDA-7 Assessment 93895 ([id number]) Assessment & Plan Assessment & Plan (1) Subclinical hypothyroidism: Code(s): E03.8 - Other specified hypothyroidism Category: Medical Plan: The patient is advised to decrease her levothyroxine dose by 25 mcg and to repe at thyroid function tests in six weeks to monitor the effect of the dosage adjustment. (2) Pure hypercholesterolemia, unspecified: Code(s): E78.00 - Pure hypercholesterolemia, unspecified Category: Medical Plan: The patient prefers to manage her cholesterol through dietary modifications rather than starting statin therapy. She will receive information on dietary changes to help lower cholesterol levels naturally. Condition is chronic and stable will continue to monitor. (3) Hyperlipidemia: Code(s): E78.5 - Hyperlipidemia, unspecified Category: Medical Plan: The patient prefers to manage her cholesterol through dietary modifications rather than starting statin therapy. She will receive information on dietary changes to help lower cholesterol levels naturally. Condition is chronic and stable will continue to monitor. (4) Hypertriglyceridemia: Code(s): E78.1 - Pure hyperglyceridemia Category: Medical Plan: The patient prefers to manage her cholesterol through dietary modifications rather than starting statin therapy. She will receive information on dietary changes to help lower cholesterol levels naturally. Condition is chronic and stable will continue to monitor. (5) Prediabetes: Code(s): R73.03 - Prediabetes Category: Medical Plan: The patient is advised to reduce sugar intake, including sugary drinks and high- carbohydrate foods, to prevent progression to diabetes. (6) Status post radiation therapy: Comment: Post radiation therapy 3 weeks. Had total 6 week therapy. For right breast cancer. Code(s): Z92.3 - Personal history of irradiation Category: Medical Plan: The patient completed radiation therapy three weeks ago and reports no significant symptoms post-treatment. There is a consideration that radiation may affect her thyroid function, and this will be monitored. Plan Plan Patient was informed and verbally consented to the use of an ambient scribe for clinic note documentation during this visit. 1. Subclinical Hypothyroidism The patient is advised to decrease her levothyroxine dose by 25 mcg and to repeat thyroid function tests in six weeks to monitor the effect of the dosage adjustment. 2. Hypercholesterolemia The patient prefers to manage her cholesterol through dietary modifications rather than starting statin therapy. She will receive information on dietary changes to help lower cholesterol levels naturally. 3. Prediabetes The patient is advised to reduce sugar intake, including sugary drinks and high- carbohydrate foods, to prevent progression to diabetes. 4. History Of Breast Cancer Treated With Radiation Therapy The patient completed radiation therapy three weeks ago and reports no significant symptoms post-treatment. There is a consideration that radiation may affect her thyroid function, and this will be monitored. During the visit, we discussed the patient's subclinical hypothyroidism and the need to adjust her levothyroxine dosage. We also reviewed her cholesterol levels and the option to manage them through dietary changes rather than medication. The patient was informed about her prediabetes status and advised on reducing sugar intake to prevent progression to diabetes. We also considered the potential impact of recent radiation therapy on her thyroid function and planned to monitor this closely. Orders: Orders TSH reflex Free T4 6 Weeks E07.9 - Disorder of thyroid, unspecified Medications: New levothyroxine (Synthroid) 150 mcg PO DAILY 42 tabs 0RF 6 weeks Discontinued levothyroxine (Synthroid) Discontinued Reason: Doctor's Order 175 mcg PO DAILY 90 tabs 1RF Patient Instructions: - Decrease levothyroxine dose by 25 mcg and repeat thyroid function tests in six weeks. - Follow dietary recommendations to lower cholesterol naturally. - Reduce sugar intake, including sugary drinks and high-carbohydrate foods. - Schedule a follow-up appointment in six weeks to review thyroid function and cholesterol levels.
== END 2024-11-04 15:10 | disposition home or self-care (01) ==
LOC: HO.HMCSH 14:41
PROVIDERS: PCP Internal Medicine; Visit Provider Physician Assistant Medical
DX: E03.8 Other specified hypothyroidism (principal); E78.00 Pure hypercholesterolemia, unspecified; E78.5 Hyperlipidemia, unspecified; E78.1 Pure hyperglyceridemia; R73.03 Prediabetes; Z92.3 Personal history of irradiation

== ENCOUNTER → 2024-11-04 14:41 | Outpatient (BNVA) | payer BC, SELFPAY | PROVIDERS: PCP Internal Medicine; Visit Provider Physician Assistant Medical | DX: E03.8 Other specified hypothyroidism (principal); E78.00 Pure hypercholesterolemia, unspecified; E78.1 Pure hyperglyceridemia; R73.03 Prediabetes; Z79.899 Other long term (current) drug therapy; Z92.3 Personal history of irradiation; Z13.31 Encounter for screening for depression; Z13.30 Encounter for screening examination for mental health and behavioral disorders, unspecified | CPT/HCPCS: 96127 ==

== ENCOUNTER 2024-11-25 11:59 | Outpatient (AMB) | payer BC, SELFPAY ==
--- NOTE | 2024-11-25 11:59 | MHC.PC.OV ---
Intake Visit Reasons: Conjunctivitis Relief Charge Nurse Required: No Allergies Sulfa (Sulfonamide Antibiotics) Allergy (Intermediate, Verified 11/25/24 14:39) Rash Medication List - Last Reconciled 11/25/24 by Gaby Cloud PA-C amoxicillin-pot clavulanate 875-125 mg 1 tab PO BID 7 days cholecalciferol (vitamin D3) 50 mcg PO DAILY erythromycin 0.5 inches ophthalmic (eye) QID exemestane 25 mg PO DAILY ibuprofen 800 mg PO TID levothyroxine (Synthroid) 150 mcg PO DAILY 6 weeks losartan 50 mg PO DAILY Tobacco use date assessed: 11/25/24 Dental Screening Dental Screen Date: 11/04/24 HPI Conjunctivitis HPI Details The patient is a 54-year-old female presenting with symptoms of a head cold and suspected sinusitis. The symptoms began approximately one week ago, following her daughter's similar illness two weeks prior. She reports sinus pressure, congestion, runny nose, and occasional coughing. This morning, she noticed her eyes were gunky and watery, which she associates with her daughter's initial symptoms of suspected pink eye. She suspects her condition has developed into a sinus infection, as she experiences facial swelling and significant pressure. The patient has a history of sinus infections and has previously been treated with antibiotics such as Augmentin, avoiding sulfa drugs due to allergies. [facility] Medical History (Updated 11/25/24 @ 14:45 by Gaby Cloud PA-C) Sinusitis Bacterial conjunctivitis Status post radiation therapy Prediabetes Hypertriglyceridemia Hyperlipidemia Pure hypercholesterolemia, unspecified Subclinical hypothyroidism Class 2 obesity without serious comorbidity with body mass index (BMI) of 38.0 to 38.9 in adult Tubular adenoma Vertigo Uterine prolapse Ovarian cyst Mild hypercholesterolemia Hypertension History of anesthesia complications Hx of breast cancer COVID-19 vaccine administered Thyroid disease Surgical History History of tonsillectomy and adenoidectomy Hx of section Hx of cholecystectomy H/O colonoscopy (~12/03/20) Hx of hysterectomy History of right oophorectomy History of left oophorectomy Hx of bilateral mastectomy Family History Father Heart disease Prostate cancer Mother Heart disease Scleroderma Lupus (systemic lupus erythematosus) Social History Housing: House Alcohol intake: current Alcohol intake frequency: holidays/special occasions only Patient Tobacco Use Status: Former Tobacco user Tobacco use type: Cigarette Advance Directives Date on File: 12/03/20 service: No Current occupational status: employed Cognitive needs: No Hearing needs: No Vision needs: Yes (rx glasses) Questionnaire PHQ-9 Over the last 2 weeks, how often have you been bothered by any of the following problems? 1. Little interest or pleasure in doing things: not at all 2. Feeling down, depressed, or hopeless: not at all 3. Trouble falling or staying asleep, or sleeping too much: not at all 4. Feeling tired or having little energy: not at all 5. Poor appetite or overeating: not at all 6. Feeling bad about yourself - or that you are a failure or have let yourself or your family down: not at all 7. Trouble concentrating on things, such as reading the newspaper or watching television: not at all 8. Moving or speaking so slowly that other people could have noticed. Or the opposite - being so fidgety or restless that you have been moving around a lot more than usual: not at all 9. Thoughts that you would be better off or of hurting yourself in some way: not at all Total score: 0 Depression Screening Interpretation: Negative Depression Screening Done: Yes 41992 - PHQ-9 Billing: Yes Source: Developed by Drs. Magdi Delcid, Sharon Connors, Jasiel Marshall and colleagues, with an educational gloria from [employer]. Thrive Questionnaire Date Thrive assessed: 11/04/24 I am a: Patient What is your living situation today?: I have a steady place to live Within the past 12 months, did the food you bought not last and you didn't have the money to get more?: Never true Within the past 12 months, did you worry whether your food would run out before you got money to buy more?: Never true Do you have trouble paying for medicines?: No Do you have trouble getting transportation to medical appointments?: No Do you have trouble paying your heating and electricity bill?: No Do you have trouble taking care of your child, family member or friend?: No Do you have trouble with day-to-day activities such as bathing, preparing meals, shopping, managing finances, etc.?: No Are you currently unemployed and looking for a job?: No Are you interested in more education?: No Please select the resources that you would like help with: None THRIVE Score: 0 AUDIT C Alcohol Use Questionnaire (AUDIT-C) 1. How often do you have a drink containing alcohol?: Monthly or less 2. How many drinks containing alcohol do you have on a typical day when you are drinking?: 1 or 2 3. How often do you have six or more drinks on one occasion?: Never Total Score: 1 Score Reviewed/Action Taken: Yes BELINDA-7 AMB Questionnaire BELINDA-7 Date BELINDA - 7 assessed: 11/04/24 Feeling nervous, anxious, or on edge: 0 = Not at all Not being able to stop or control worryin = Not at all Worrying too much about different things: 0 = Not at all Trouble relaxin = Not at all Being so restless that it is hard to sit still: 0 = Not at all Becoming easily annoyed or irritable: 0 = Not at all Feeling afraid as if something awful might happen: 0 = Not at all Total BELINDA-7 score (0-4 normal; 5-9 mild; 10-14 moderate; 15-21 severe): 0 Source: Developed by Drs. Magdi Delcid, Sharon Connors, Jasiel Marshall and colleagues, with an educational gloria from [employer]. BELINDA-7 Assessment Billing BELINDA-7 Assessment Tool: BELINDA-7 Assessment 70467 Review of Systems Const Details: - Eyes: Reports gunky and watery eyes. - Respiratory: Reports sinus pressure, congestion, and occasional coughing. Physical exam (Primary Care) Tobacco/Smoking Status: Tobacco use Status Tobacco use date assessed 11/25/24 11/25/24 12:02 Patient Tobacco Use Status Former Tobacco user 11/25/24 12:02 Tobacco use type Cigarette 11/25/24 12:02 PHQ-9: PHQ-9 Score PHQ-9: Total score 0 11/25/24 12:10 Depression Screening Interpretation: Negative Thrive Assessment: Date of Thrive Assessment Date Thrive assessed 11/04/24 11/25/24 12:02 Telehealth Telehealth Telehealth Platform: Telephone Location of provider rendering services: practice address Location of patient: address on file Patient Identification confirmed using: Name, : Yes Telehealth method: video Patient verbally consented to treatment: Yes Patient verbally consented to billing insurance company: Yes Patient informed of any privacy concerns related to visit: Yes Minutes spent on Phone/Video with Pt.: 20 Coding Level of Care Code Tele Est Pt Level 4 (98744) Complex EM visit Add On G2211 Diagnoses Bacterial conjunctivitis H10.9 Sinusitis J32.9 Additional Codes BELINDA-7 Assessment Billing - BELINDA-7 Assessment Tool: BELINDA-7 Assessment 72066 ([id number]) PHQ-9 - 49872 - PHQ-9 Billing: Yes ([id number]) Assessment & Plan Assessment & Plan (1) Bacterial conjunctivitis: Code(s): H10.9 - Unspecified conjunctivitis Category: Medical Plan: The patient will be treated with erythromycin ointment, applied four times daily for five days, to address the symptoms of bacterial conjunctivitis. (2) Sinusitis: Code(s): J32.9 - Chronic sinusitis, unspecified Category: Medical Plan: The patient will receive Augmentin, taken twice daily for seven days, to treat the suspected sinusitis. She is advised to avoid sulfa drugs due to allergies. Plan Plan Patient was informed and verbally consented to the use of an ambient scribe for clinic note documentation during this visit. 1. Bacterial Conjunctivitis The patient will be treated with erythromycin ointment, applied four times daily for five days, to address the symptoms of bacterial conjunctivitis. 2. Sinusitis The patient will receive Augmentin, taken twice daily for seven days, to treat the suspected sinusitis. She is advised to avoid sulfa drugs due to allergies. I discussed with the patient the likely diagnosis of viral conjunctivitis and sinusitis. We agreed on a treatment plan involving erythromycin ointment for the eyes and Augmentin for the sinusitis. I advised her to avoid sulfa drugs due to her allergy and to maintain good hand hygiene to prevent the spread of conjunctivitis. Medications: New amoxicillin-pot clavulanate 875-125 mg 1 tab PO BID 14 tabs 0RF 7 days erythromycin 0.5 inches ophthalmic (eye) QID 3.5 grams 1RF Patient Instructions: - Apply erythromycin ointment to the eyes four times daily for five days. - Take Augmentin twice daily for seven days. - Avoid sulfa drugs due to allergy. - Practice good hand hygiene to prevent spreading conjunctivitis. - Contact the clinic if symptoms worsen.
== END 2024-11-25 12:13 | disposition home or self-care (01) ==
LOC: HO.HMCSH 11:59
PROVIDERS: PCP Internal Medicine; Visit Provider Physician Assistant Medical
DX: H10.9 Unspecified conjunctivitis (principal); J32.9 Chronic sinusitis, unspecified

== ENCOUNTER → 2024-11-25 11:59 | Outpatient (BNVA) | payer BC, SELFPAY | PROVIDERS: PCP Internal Medicine; Visit Provider Physician Assistant Medical | DX: H10.9 Unspecified conjunctivitis (principal); J32.9 Chronic sinusitis, unspecified | CPT/HCPCS: 96127 ==

== ENCOUNTER 2024-12-15 07:41 | Outpatient (REF) | payer BC, SELFPAY ==
--- OUTSIDE RECORDS SUMMARY | 2024-12-15 07:43 | XMS_ITS | Clinical Summary ---
Author Organization [facility] Address [email or web address] [place] [address] Phone Care Team Providers Care District Captain Name Role Phone Herbert Alvarenga MD Unavailable Marissa Fountain MD Unavailable [phone] Kelly Albarran MD Unavailable [phone] Josh Pineda MD Primary Care Provid er Allergies Active Allergy Reactions Criticality Noted Date Comments Sulfa (Sulfonamide Antibiotics) High 08/27/2016 Other reaction(s): yeast infections Medications levothyroxine (SYNTHROID, LEVOTHROID) 175 MCG tablet 1 TAB Active losartan (COZAAR) 50 MG tablet Take 50 mg by mouth daily. 12/30/2022 Active cholecalciferol (VITAMIN D3) 2,000 unit tablet Take 2,000 Units by mouth daily. Active exemestane (AROMASIN) 25 mg tablet Take 1 tablet (25 mg total) by mouth daily. 30 tablet 12 10/11/2024 Active Active Problems Patient Care Coordination No te Formatting of this note migh t be different from the original. Height 162.2cm no shoes taken by OC 07/14/2023 Problem Noted Date Diagnosed Date Status post bilateral breast reconstruction 05/19 Breast implant status 06/10/2018 History of breast cancer 05/29/2017 Status post bilateral mastectomy 05/29/2017 Malignant neoplasm of upper- outer quadrant of right breast in female, estrogen receptor positive 05/26/2017 Cancer Staging:Clinical stage from 02/15/2013:Stage IA(T1c, N0, M0) - Signed by Marissa Fountain MD on 05/27/2017 Encounters Date Type Department Care Team Description 10/11/2024 11:00 AM EDT Office Visit [facility] at [address] [address] Marissa Fountain MD Malignant neoplasm of upper-outer quadrant of right breast in female, estrogen receptor positive (Primary Dx); Aromatase inhibitor use; Vasomotor flushing; Osteopenia of lumbar spine; Radiation dermatitis 10/07/2024 Documentation [facility] Rad Onc [address] [place] [id number] Anjelica Alicia MD 10/06/2024 2:30 PM EDT Procedure visit [facility] Rad Onc [address] [place] [address] Anjelica Alicia MD Malignant neoplasm of upper-outer quadrant of right breast in female, estrogen receptor positive (Primary Dx) 10/06/2024 Documentation [facility] Rad Onc [address] [place] [phone] Gisselle Stevenson MA Rad Onc discharge (Malignant neoplasm of upper-outer quadrant of right breast in female, estrogen receptor positive) 09/29/2024 2:40 PM EDT Procedure visit [facility] Rad Onc [address] [place] [address] Anjelica Alicia MD Malignant neoplasm of upper-outer quadrant of right breast in female, estrogen receptor positive (Primary Dx) 09/22/2024 2:30 PM EDT Procedure visit [facility] Rad Onc [address] [place] [address] Anjelica Alicia MD Sheldon, John M, MD Malignant neoplasm of upper-outer quadrant of right breast in female, estrogen receptor positive (Primary Dx) 09/15/2024 2:30 PM EDT Procedure visit [facility] Rad Onc [address] [place] [phone] Anjelica Alicia MD Malignant neoplasm of upper-outer quadrant of right breast in female, estrogen receptor positive (Primary Dx) from Last 3 Months Immunizations Immunization Administration Dates Next Due COVID-19 (Pre-03/09) Pfizer Vaccine, mRNA, PF ,08/08/2020 COVID-19 (Pre-03/09) Pfizer Vaccine, mRNA, melissa-sucrose, PF 06/07/2021 [id number] FORMULATION 06/14/2009 Influenza Quadrivalent w/ Preservative IM 2015,05/01/2015 Influenza, Unspecified Formulation 02/29/2020 Td (adult),2 Lf Tetanus Toxoid, PF, Adsorbed Family History Medical History Relation Comments Heart disease Father Hypertension Father Autoimmune disease Mother Heart disease Mother Relation Status Comments Father Alive Mother Alive Social History Tobacco Use Types Packs/Day Years Used Date Smoking Tobacco: Former Cigarettes 2 15 1 986 - 2000 Smokeless Tobacco: Never Tobacco Cessation:Counseling Given: Not Answered Alcohol Use Standard Drinks/Week Comments Yes 0 (1 standard drink = 0.6 oz pur e alcohol) 5 drinks a month Education Answer Date Recorded Are you interested in more education? Not on ta e 09/12/2022 Are you concerned about learning? Not on file 09/12/2022 No 09/12/2022 No 09/12/2022 Digital Access Answer Date Recorded No 10/11/2022 No 10/11/2022 Reliable internet access at home? Not on file 10/11/2022 Device with a working camera? Not on file Intimate Partner Violence Answer Date R ecorded Are you denied basic needs s uch as food, clothing, or medical care? No 06/09/2024 In the past 12 months have y ou been in a relationship with a person who hurts, threatens, or tries to control you? No 06/09/2024 Are you denied basic needs s uch as food, clothing, or medical care? No 06/09/2024 In the past 12 months have y ou been in a relationship with a person who hurts, threatens, or tries to control you? No 06/09/2024 Comments Unknown Sex and Gender Information Value Date Recorded Sex Assigned at Not on file Legal Sex Female 9:34 PM EDT Gender Identity Not on file Sexual Orientation Not on file Last Filed Vital Signs Vital Sign Reading Time Taken Comments Blood Pressure 135/91 10/11/2024 11:15 AM EDT Pulse 79 10/11/2024 11:15 AM EDT Temperature 37.1 C (98.8 F) 10/11/2024 11:15 AM EDT Respiratory Rate 16 07/15/2024 10:1 2 AM EST Oxygen Saturation 97% 10/11/2024 11: 15 AM EDT Inhaled Oxygen Concentration - - Weight 101.9 kg (224 lb 11.2 oz) 2024 11:15 AM EDT Height 162.6 cm (5' 4.02 ) 10/11/2024 1 1:15 AM EDT Body Mass Index 38.55 10/11/2024 11:15 AM EDT Plan of Treatment Upcoming Encounters Date Type Department Care Team (Late st Contact Info) Description 01/13/2025 9:00 AM EDT Office Visit [facility] [address] [place] [id number] Marissa Fountain MD [address] [place] [phone] 04/20/2025 2:00 PM EST Office Visit [facility] Rad Onc [address] [place] [phone] Anjelica Alicia MD [address] [place] [phone] [email or web address] Health Maintenance Due Date Last Done Comments CREATININE LEVEL 1970 LIPID PANEL 1970 POTASSIUM LEVEL 1970 TSH LEVEL 1970 DEPRESSION SCREENING 1982 HEPATITIS C SCREENING 1988 HIV ONE-TIME SCREENING (18-6 5 YEARS) 1988 PNEUMOCOCCAL VACCINES (50+ years) (1 of 2 - PCV) 1989 ZOSTER VACCINES (1 of 2) 1989 SCREENING FOR DIABETES 2005 Adult Td,Tdap Booster 08/13/2014 08/13/2004 COLOGUARD 2015 COLONOSCOPY 2015 COLORECTAL CANCER SCREENING 2015 FIT TEST 2015 FOBT 2015 SIGMOIDOSCOPY 2015 VIRTUAL COLONOSCOPY 2015 PAP SMEAR 08/28/2015 08/27/2012 COVID-19 VACCINE (4 - 2023-2 5 season) 2024 06/07/2021, 08/29/2020, 08/08/2020 SMOKING STATUS SCREENING (On ce After 26 Yrs) Completed 10/11/2024 HEPATITIS A VACCINES Aged Out No long er eligible based on patient's age to complete this topic HIB VACCINES Aged Out No longer eligi ble based on patient's age to complete this topic MENINGOCOCCAL VACCINES (ACWY) Aged Out No longer eligible based on patient's age to complete this topic MENINGOCOCCAL VACCINES (B) Aged Out N o longer eligible based on patient's age to complete this topic Medical Devices Implanted Type Area Marketing Technology Specialist Device Identifier Shelf Expiration Date Model / Serial / Lot Breast Breast Marker Ultraclip 17ga 10cm Tissue Dual Trigger Breast Ti Heart Shape Bx/5ea - [id number] Implanted:Qty: 1 on 04/18/2024 by Yolanda Fofana MD at [facility] Right: Breast [employer] [id number] / / Description:TISSUE MARKER IS VISION SHAPED Marker Ultraclip 17ga 10cm Tissue Dual Trigger Breast Ti Heart Shape Bx/5ea - [id number] Implanted:Qty: 1 on 04/18/2024 by Yolanda Fofana MD at [facility] Right: Breast [employer] [id number] / / Description:TISSUE MARKER IS VISION SHAPED Insurance [facility] Member Subscriber Plan / Payer (Ef fective 2015-Present) Name:Nicole Molina Relation to Subscriber:Self Name:Nicole Molina Payer ID:[id number] (IC) Type:HMO Address: [address] [place], [place] Member Subscriber Plan / Payer (Ef fective 2015-Present) Name:Nicole Molina Relation to Subscriber:Self Name:Nicole Molina Payer ID:[id number] (NAIC) Type:HMO Address: [facility] [id number] [place], [place] Member Subscriber Plan / Payer (Ef fective 2015-Present) Name:Nicole Molina Relation to Subscriber:Self Name:Nicole Molina Payer ID:[id number] (NAIC) Type:HMO Address: [address] [place], [place] [facility] Advance Directives For more information, please contact: [phone] (9AM - 5PM [facility], Thursday-Thursday) * Full Code (Latest Code Status on File) Date Activated Date Inactivated Comments 06/09/2024 7:15 AM Question Answer Comments Code Status Confirmed With: Patient Care Teams District Captain Relationship Specialty Start Date End Date Josh Pineda MD [address] [place] [phone] PCP - General Internal Medicine 09/15/24 Herbert Alvarenga MD [address] [place] [address], [address] [place] [address] [phone] [email or web address] Historical LMR Provider 03/03/17 Marissa Fountain MD [address] [place] [phone] [email or web address] Primary Oncologist Medical Oncology 03/20/20 Kelly Albarran MD [address] [place] [address], [address] [place] [phone] [email or web address] General Surgery 06/21/24 Additional Source Comments The information contained in this document represents components of the legal health record. It is not the complete legal health record.[facility]
== END 2024-12-15 07:42 | disposition home or self-care (01) ==
LOC: HO.LAB 07:41
PROVIDERS: PCP Internal Medicine; Visit Provider Physician Assistant Medical
DX: E07.9 Disorder of thyroid, unspecified (principal)
CPT/HCPCS: 36415; 84443

== ENCOUNTER 2024-12-16 15:58 | Outpatient (AMB) | payer BC, SELFPAY ==
[2024-12-16 15:59] VITALS: BP 122/88; PULSE 94; RESP 16; TEMP 36.6; O2SAT 98; BMI 37.7
--- NOTE | 2024-12-16 15:59 | A.OFFPC_ITS ---
Vital Signs 12/16/24 15:59 Height 5 ft 4.75 in Weight 225 lb BMI 37.7 BP 122/88 Respiration 16 Pulse 94 Pulse Source Pulse Oximeter Temp 97.8 F Temp Source Temporal Artery Scan Pulse Oximetry (%) 98 Oxygen Delivery Method Room Air Intake Visit Reasons: 6 week f/u Hydrological Technical Officer Required: No Accompanied by: Self / Same As Patient Allergies Sulfa (Sulfonamide Antibiotics) Allergy (Intermediate, Verified 12/16/24 17:35) Rash Medication List - Last Reconciled 12/16/24 by Gaby Cloud PA-C cholecalciferol (vitamin D3) 50 mcg PO DAILY exemestane 25 mg PO DAILY ibuprofen 800 mg PO TID levothyroxine (Synthroid) 150 mcg PO DAILY 6 weeks losartan 50 mg PO DAILY Tobacco use date assessed: 12/16/24 Dental Screening Dental Screen Date: 11/04/24 HPI 6 week f/u HPI Details The patient is a 54-year-old female presenting for follow-up of hypothyroidism and post-radiation fatigue. The patient has been diagnosed with hypothyroidism and is currently on 150 mcg of Synthroid. Recent blood work showed a thyroid-stimulating hormone (TSH) level of 1.01, indicating well-controlled thyroid function. Despite this, the patient reports persistent fatigue, which she attributes to her recent radiation therapy. The patient completed radiation therapy at the end of September and has been experiencing significant fatigue since then. She describes feeling extremely tired, especially in the evenings, and has been advised that this may be a lingering effect of the radiation treatment. [facility] Medical History Sinusitis Bacterial conjunctivitis Status post radiation therapy Prediabetes Hypertriglyceridemia Hyperlipidemia Pure hypercholesterolemia, unspecified Subclinical hypothyroidism Class 2 obesity without serious comorbidity with body mass index (BMI) of 38.0 to 38.9 in adult Tubular adenoma Vertigo Uterine prolapse Ovarian cyst Mild hypercholesterolemia Hypertension History of anesthesia complications Hx of breast cancer COVID-19 vaccine administered Thyroid disease Surgical History History of tonsillectomy and adenoidectomy Hx of section Hx of cholecystectomy H/O colonoscopy (~12/03/20) Hx of hysterectomy History of right oophorectomy History of left oophorectomy Hx of bilateral mastectomy Family History Father Heart disease Prostate cancer Mother Heart disease Scleroderma Lupus (systemic lupus erythematosus) Social History Housing: House Alcohol intake: current Alcohol intake frequency: holidays/special occasions only Patient Tobacco Use Status: Former Tobacco user Tobacco use type: Cigarette Advance Directives Date on File: 12/03/20 service: No Current occupational status: employed Cognitive needs: No Hearing needs: No Vision needs: Yes (rx glasses) Questionnaire PHQ-9 Over the last 2 weeks, how often have you been bothered by any of the following problems? 1. Little interest or pleasure in doing things: not at all 2. Feeling down, depressed, or hopeless: not at all 3. Trouble falling or staying asleep, or sleeping too much: not at all 4. Feeling tired or having little energy: not at all 5. Poor appetite or overeating: not at all 6. Feeling bad about yourself - or that you are a failure or have let yourself or your family down: not at all 7. Trouble concentrating on things, such as reading the newspaper or watching television: not at all 8. Moving or speaking so slowly that other people could have noticed. Or the opposite - being so fidgety or restless that you have been moving around a lot more than usual: not at all 9. Thoughts that you would be better off or of hurting yourself in some way: not at all Total score: 0 Depression Screening Interpretation: Negative Depression Screening Done: Yes 12063 - PHQ-9 Billing: Yes Source: Developed by Drs. Magdi Delcid, Sharon Connors, Jasiel Marshall and colleagues, with an educational gloria from [employer]. Thrive Questionnaire Date Thrive assessed: 11/25/24 I am a: Patient What is your living situation today?: I have a steady place to live Within the past 12 months, did the food you bought not last and you didn't have the money to get more?: Never true Within the past 12 months, did you worry whether your food would run out before you got money to buy more?: Never true Do you have trouble paying for medicines?: No Do you have trouble getting transportation to medical appointments?: No Do you have trouble paying your heating and electricity bill?: No Do you have trouble taking care of your child, family member or friend?: No Do you have trouble with day-to-day activities such as bathing, preparing meals, shopping, managing finances, etc.?: No Are you currently unemployed and looking for a job?: No Are you interested in more education?: No Please select the resources that you would like help with: None THRIVE Score: 0 AUDIT C Alcohol Use Questionnaire (AUDIT-C) 1. How often do you have a drink containing alcohol?: Monthly or less 2. How many drinks containing alcohol do you have on a typical day when you are drinking?: 1 or 2 3. How often do you have six or more drinks on one occasion?: Never Total Score: 1 Score Reviewed/Action Taken: Yes BELINDA-7 AMB Questionnaire BELINDA-7 Date BELINDA - 7 assessed: 11/25/24 Feeling nervous, anxious, or on edge: 0 = Not at all Not being able to stop or control worryin = Not at all Worrying too much about different things: 0 = Not at all Trouble relaxin = Not at all Being so restless that it is hard to sit still: 0 = Not at all Becoming easily annoyed or irritable: 0 = Not at all Feeling afraid as if something awful might happen: 0 = Not at all Total BELINDA-7 score (0-4 normal; 5-9 mild; 10-14 moderate; 15-21 severe): 0 Source: Developed by Drs. Magdi Delcid, Sharon Connors, Jasiel Marshall and colleagues, with an educational gloria from [employer]. BELINDA-7 Assessment Billing BELINDA-7 Assessment Tool: BELINDA-7 Assessment 92184 Review of Systems Const Details: - General: Reports fatigue, especially in the evenings. - Endocrine: Denies any new symptoms related to thyroid dysfunction. All systems reviewed & are unremarkable except as noted in HPI and below Physical exam (Primary Care) Vital Signs: Last Vital Signs Temp 97.8 F 12/16/24 15:59 Pulse 94 12/16/24 15:59 Resp 16 12/16/24 15:59 BP 122/88 12/16/24 15:59 Pulse Ox 98 12/16/24 15:59 Oxygen Delivery Method Room Air 12/16/24 15:59 Care Plan Goal for BP management: <140/90 at Goal BMI result Body Mass Index 37.7 BMI Assessment/Plan discussion: High BMI High, discussed plan: lifestyle, weight reduction, dietary, physical activity and alcohol moderation Tobacco/Smoking Status: Tobacco use Status Tobacco use date assessed 12/16/24 12/16/24 16:06 Patient Tobacco Use Status Former Tobacco user 12/16/24 16:06 Tobacco use type Cigarette 12/16/24 16:06 PHQ-9: PHQ-9 Score PHQ-9: Total score 0 12/16/24 16:06 Depression Screening Interpretation: Negative Thrive Assessment: Date of Thrive Assessment Date Thrive assessed 11/25/24 12/16/24 16:06 Const Other: Appearance: Alert. Oriented X3. No acute distress. Head: Normal external exam. Normocephalic. Atraumatic. Eyes: Pupils are equal, round, and reactive to light. Extraocular movements intact. Conjunctiva and sclera normal. Eyelids normal. Throat: Pharynx normal. Uvula midline. Moist mucous membranes. Neck: Normal inspection. Neck supple. Full range of motion. Cardiovascular: Normal heart rate and rhythm. Respiratory: No respiratory distress. Painless inspiration. Back: Full range of motion noted. Skin: Skin warm and dry. Normal skin color. Extremities: Extremities exhibit normal range of motion. Results Reviewed Results Reviewed: - Labs: Thyroid-stimulating hormone (TSH) level of 1.01, indicating well- controlled thyroid function. Coding Level of Care Code Est Pt Level 4 (53952) Complex EM visit Add On G2211 Diagnoses Thyroid disease E07.9 Additional Codes BELINDA-7 Assessment Billing - BELINDA-7 Assessment Tool: BELINDA-7 Assessment 75341 ([id number]) PHQ-9 - 96663 - PHQ-9 Billing: Yes ([id number]) Assessment & Plan Assessment & Plan (1) Thyroid disease: Comment: hypothyroid Code(s): E07.9 - Disorder of thyroid, unspecified Category: Medical Plan: The patient's hypothyroidism is currently well-managed with 150 mcg of Synthroid, as evidenced by a TSH level of 1.01. A follow-up TSH test is planned in six to eight weeks to ensure continued control. Plan Plan Patient was informed and verbally consented to the use of an ambient scribe for clinic note documentation during this visit. 1. Hypothyroidism The patient's hypothyroidism is currently well-managed with 150 mcg of Synthroid, as evidenced by a TSH level of 1.01. A follow-up TSH test is planned in six to eight weeks to ensure continued control. 2. Post-Radiation Fatigue The patient reports significant fatigue following radiation therapy completed at the end of September. It is advised to monitor symptoms and consider further evaluation if fatigue persists. I discussed with the patient that her thyroid function is currently well- controlled with Synthroid, and we will recheck her TSH in six to eight weeks. We also talked about her post-radiation fatigue, and I advised monitoring her symptoms and contacting us if they persist or worsen. Orders: Orders TSH reflex Free T4 Today Z00.00 - Encounter for general adult medical examination without abnormal findings Patient Instructions: - Continue taking Synthroid as prescribed. - Schedule a follow-up TSH test in six to eight weeks. - Monitor fatigue symptoms and contact the clinic if they persist or worsen.
== END 2024-12-16 16:16 | disposition home or self-care (01) ==
LOC: HO.HMCSH 15:58
PROVIDERS: PCP Internal Medicine; Visit Provider Physician Assistant Medical
DX: E07.9 Disorder of thyroid, unspecified (principal)

== ENCOUNTER → 2024-12-16 15:58 | Outpatient (BNVA) | payer BC, SELFPAY | PROVIDERS: PCP Internal Medicine; Visit Provider Physician Assistant Medical | DX: E07.9 Disorder of thyroid, unspecified (principal); Z79.899 Other long term (current) drug therapy; Z13.31 Encounter for screening for depression | CPT/HCPCS: 96127 ==